=== PATIENT | male | born 1970 | race American Indian/Alaskan Native ===

== ENCOUNTER 2020-10-23 21:53 | Observation (INO) | payer MEDICAID, OTHER ==
[2020-10-23] MEDS ORDERED: ONDANSETRON 4 MG/2 ML INJ IV ONE (22:07)
--- NOTE | 2020-10-23 22:08 | Emergency Department Report ---
ED Shortness of Breath HPI - General Stated Complaint: RESPIRATORY DISTRESS Time Seen by Provider: 10/23/20 21:59 Source: patient, EMS Mode of arrival: Stretcher Limitations: No Limitations - History of Present Illness Initial Comments: Patient is a 50-year-old male who presents emergency room with complaints of difficulty breathing. Patient states his symptoms started 2 days ago. Patient dates symptoms are worsening. Patient states that he missed dialysis for the last 2 days because he is visiting here from [place]. Patient denies chest pain. Patient denies fever and chills. Patient states he has been wheezing. Patient has history of CHF, end-stage renal disease and hypertension and COPD. Patient states he recently had a vein graft to his left lower extremity. Patient complains of a dry cough. Patient brought in by medics. Report received from EMS. EMS states that the patient was wheezing and was tight in the lungs. Patient was given magnesium, Solu-Medrol and placed on oxygen. Patient was also given albuterol. Patient denies recent travel. Patient denies recent international travel. Patient denies exposure to the novel coronavirus. Patient denies sick contacts. Patient denies fever and chills. . Patient denies diarrhea. Patient denies coming in contact with anybody with symptoms of the novel coronavirus. MD Complaint: shortness of breath -: Sudden Severity: severe Consistency: constant Improves With: oxygen, rest, bronchodilators, upright position Worsens With: lying flat, exertion Known History Of: COPD, congestive heart failure Context: medication noncompliance Treatments Prior to Arrival: oxygen, bronchodilator, other (Solu-Medrol and magnesium) - Related Data Home Oxygen Therapy: Yes Home Oxygen Amount: 2 Liters Allergies Allergy/AdvReac Type Severity Reaction Status Date / Time vancomycin Allergy Rash Verified 10/23/20 22:21 ED Review of Systems ROS: Stated complaint: RESPIRATORY DISTRESS Other details as noted in HPI Constitutional: denies: chills, fever Eyes: denies: eye pain, eye discharge, vision change ENT: denies: ear pain, throat pain Respiratory: see HPI, cough, shortness of breath, SOB with exertion, SOB at rest, wheezing Cardiovascular: dyspnea on exertion. denies: chest pain, palpitations Endocrine: no symptoms reported Gastrointestinal: denies: abdominal pain, nausea, diarrhea Genitourinary: denies: urgency, dysuria Musculoskeletal: denies: back pain, joint swelling, arthralgia Skin: denies: rash, lesions Neurological: denies: headache, weakness, paresthesias Psychiatric: denies: anxiety, depression Hematological/Lymphatic: denies: easy bleeding, easy bruising ED Past Medical Hx - Past Medical History Previous Medical History?: Yes Hx Hypertension: Yes Hx Congestive Heart Failure: Yes Hx Renal Disease: Yes (esrd) Hx COPD: Yes - Surgical History Past Surgical History?: Yes Additional Surgical History: Vein graft - Family History Family history: no significant - Social History Smoking Status: Former Smoker Substance Use Type: None ED Physical Exam - General General appearance: alert, in distress - Head Head exam: Present: atraumatic, normocephalic - Eye Eye exam: Present: normal appearance - ENT ENT exam: Present: mucous membranes moist - Neck Neck exam: Present: normal inspection - Respiratory Respiratory exam: Present: respiratory distress, decreased breath sounds - Cardiovascular Cardiovascular Exam: Present: regular rate, normal rhythm. Absent: systolic murmur, diastolic murmur, rubs, gallop - GI/Abdominal GI/Abdominal exam: Present: soft, normal bowel sounds - Rectal Rectal exam: Present: deferred - Extremities Exam Extremities exam: Present: normal inspection - Back Exam Back exam: Present: normal inspection - Neurological Exam Neurological exam: Present: alert, oriented X3 - Psychiatric Psychiatric exam: Present: normal affect, normal mood - Skin Skin exam: Present: warm, dry, intact, normal color. Absent: rash ED Course Vital Signs 10/23/20 10/23/20 10/23/20 22:12 22:30 23:00 Temperature 98.7 F Pulse Rate 100 H 100 H 97 H Respiratory 12 11 L 12 Rate Blood Pressure 138/82 136/91 121/69 Blood Pressure 138/82 [Right] O2 Sat by Pulse 95 92 98 Oximetry 10/23/20 10/24/20 10/24/20 23:30 00:00 00:30 Temperature Pulse Rate 96 H 97 H 95 H Respiratory 11 L 15 11 L Rate Blood Pressure 130/72 125/72 138/74 Blood Pressure [Right] O2 Sat by Pulse 98 99 98 Oximetry 10/24/20 10/24/20 10/24/20 01:00 01:30 02:00 Temperature Pulse Rate 104 H 94 H 90 Respiratory 16 10 L 10 L Rate Blood Pressure 127/70 136/79 139/80 Blood Pressure [Right] O2 Sat by Pulse 91 98 97 Oximetry 10/24/20 10/24/20 10/24/20 02:30 03:00 03:30 Temperature Pulse Rate 86 88 86 Respiratory 10 L 11 L 8 L Rate Blood Pressure 126/87 137/97 132/78 Blood Pressure [Right] O2 Sat by Pulse 98 99 Oximetry - Reevaluation(s) Reevaluation #1: Patient refused BiPAP. Patient placed on 3 L of oxygen and the patient is work to breathe has improved. 10/23/20 22:06 Reevaluation #2: Patient is resting comfortably. 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 No change in lung sounds. 10/23/20 22:46 Reevaluation #3: Patient will receive a hyperkalemia protocol. I discussed all results with patient. I discussed plan of care with patient. Patient agrees with plan of care and admission. Patient to be admitted to the hospitalist service. 10/23/20 23:36 - Consultations Consultation #1: Hospitalist consulted for admission. Hospitalist to admit patient. 10/23/20 23:36 Consultation #2: I discussed the case with Dr. Hays, nephrology. Dr. Hays recommends admission and she will order dialysis for the morning. 10/23/20 23:56 ED Medical Decision Making - Lab Data Result diagrams: 10/23/20 22:35 10/24/20 01:11 - EKG Data -: EKG Interpreted by Me EKG shows normal: sinus rhythm, axis, intervals, QRS complexes, ST-T waves Rate: normal - Radiology Data Radiology results: report reviewed, image reviewed interpreted by me: Chest x-ray: No pneumonia, no pneumothorax, no foreign body, no osseous findings, cardiomegaly and pulmonary edema CHEST 1 VIEW 10/23/2020 9:27 PM INDICATION / CLINICAL INFORMATION: Dyspnea. COMPARISON: None available. FINDINGS: SUPPORT DEVICES: None. HEART / MEDIASTINUM: Enlarged cardiac silhouette. LUNGS / PLEURA: Mild central pulmonary vascular congestion. Mild bilateral interstitial edema. No confluent infiltrates. No pleural effusion. No pneumothorax. ADDITIONAL FINDINGS: No significant additional findings. IMPRESSION: 1. Congestive heart failure with mild interstitial edema. - Medical Decision Making Patient is a 50-year-old male who presents emergency room with complaints of shortness of breath. Patient also complains of missed dialysis. Patient is visiting from [place] and has had dialysis for 3 days. Patient brought in by EMS. EMS treated the patient for a COPD exacerbation as patient was wheezing. Patient's work to breathe improved. Patient placed on 3 L of oxygen. Patient had a chest x-ray cardiomegaly with pulmonary edema and CHF changes. Patient had labs done which showed showed end-stage renal disease with abnormal electrolytes and hyperkalemia. Patient had an EKG done which shows sinus rhythm. I personally reviewed the chest x-ray and EKG. I consulted nephrology. Nephrology recommendations were received. Patient admitted to the hospital service for further evaluation treatment. Critical care time documented due to the multiple reassessments, prolonged time at the bedside, interpretation of diagnostics and labs and discussion with consultants.. - Differential Diagnosis Volume overload, CHF exacerbation, missed dialysis, shortness of breath, Critical Care Time: Yes Critical care time in (mins) excluding proc time.: 35 Critical care attestation.: If time is entered above; I have spent that time in minutes in the direct care of this critically ill patient, excluding procedure time. Critical Care Time: 35 minutes ED Disposition Clinical Impression: SOB (shortness of breath), Pulmonary edema cardiac cause, Missed dialysis, Hyperkalemia, COPD exacerbation CHF exacerbation Qualifiers: Heart failure type: unspecified Qualified Code(s): I50.9 - Heart failure, unspecified Respiratory failure Qualifiers: Chronicity: acute Respiratory failure complication: hypoxia Qualified Code(s): J96.01 - Acute respiratory failure with hypoxia Volume overload Qualifiers: Hypervolemia type: unspecified Qualified Code(s): E87.70 - Fluid overload, unspecified Disposition: DC-09 OP ADMIT IP TO THIS HOSP Is pt being admited?: Yes Does the pt Need Aspirin: No Condition: Critical Time of Disposition: 23:59
[2020-10-23 23:02] LABS: Basophils % (Auto) 0.2 % (0.0-1.8); Eosinophils # (Auto) 0.1 K/mm3 (0.0-0.4); Eosinophils % (Auto) 0.9 % (0.0-4.3); Hematocrit 22.7 % (35.5-45.6); Hemoglobin 7.6 gm/dl (11.8-15.2); Lymphocytes # (Auto) 1.1 K/mm3 (1.2-5.4); Lymphocytes % (Auto) 9.5 % (13.4-35.0); Mean Corpuscular HGB Conc 33 % (32-34); Mean Corpuscular Volume 93 fl (84-94); Monocytes # (Auto) 0.8 K/mm3 (0.0-0.8); Monocytes % (Auto) 6.8 % (0.0-7.3); Platelet Count 213 K/mm3 (140-440); Red Blood Count 2.46 M/mm3 (3.65-5.03); Red Cell Distribution Width 15.7 % (13.2-15.2)
[2020-10-23 23:11] LABS: INR 1.22 (0.87-1.13)
[2020-10-23 23:12] LABS: Partial Thromboplastin Time 30.9 Sec. (24.2-36.6)
[2020-10-23 23:15] LABS: Albumin 3.3 g/dL (3.9-5)
--- NOTE | 2020-10-23 23:21 | XRay Report ---
CHEST 1 VIEW 10/23/2020 9:27 PM INDICATION / CLINICAL INFORMATION: Dyspnea. COMPARISON: None available. FINDINGS: SUPPORT DEVICES: None. HEART / MEDIASTINUM: Enlarged cardiac silhouette. LUNGS / PLEURA: Mild central pulmonary vascular congestion. Mild bilateral interstitial edema. No con fluent infiltrates. No pleural effusion. No pneumothorax. ADDITIONAL FINDINGS: No significant additional findings. IMPRESSION: 1. Congestive heart failure with mild interstitial edema. Signer Name: Marc Suarez MD Signed: 10/23/2020 11:17 PM Workstation Name: [id number]
[2020-10-23 23:28] LABS: Calcium 4.1 mg/dL (8.4-10.2)
[2020-10-23] MEDS ORDERED: SODIUM POLYSTYRENE 15 GM/60 ML ORAL LIQD PR ONE (23:28)
[2020-10-23] MEDS ORDERED: INSULIN REGULAR, HUMAN 100 UNITS/1 ML IV ONE (23:28)
[2020-10-23] MEDS ORDERED: DEXTROSE 50% IN WATER (25GM) 50 ML SYRINGE IV ONE (23:28)
[2020-10-24] MEDS ORDERED: NITROGLYCERIN 0.4 MG TAB SUBL SL PRN (00:19)
[2020-10-24] MEDS ORDERED: ALBUTEROL 2.5 MG/3 ML NEBU IH PRN (00:24)
[2020-10-24] MEDS ORDERED: ACETAMINOPHEN 325 MG TAB PO PRN (00:25)
[2020-10-24] MEDS ORDERED: METOCLOPRAMIDE 10 MG/2 ML INJ IV PRN (00:25)
[2020-10-24] MEDS ORDERED: CALCIUM CHLORIDE 1,000 MG in SODIUM CHLORIDE 0.9% 100 ML IV ONE (00:28)
[2020-10-24] MEDS ORDERED: DEXTROSE 50% IN WATER (25GM) 50 ML SYRINGE IV ONE ×3 (00:28→03:10)
[2020-10-24 00:54] LABS: Chol/HDL Ratio 3.85 %
--- NOTE | 2020-10-24 02:02 | History and Physical Report ---
History of Present Illness Date of examination: 10/23/20 Date of admission: 10/23/2020 Chief complaint: Difficulty in breathing, missed dialysis session History of present illness: 50-year-old -[place] male with history of COPD, CHF, ESRD on HD (M/W/F) who presents [facility] ED via EMS with complaints of difficulty in breathing. Patient states that he has missed dialysis a few due to traveling from [place] to [place] for his daughter's high school graduation. He was last dialyzed on 10/17/2020. He complains of worsening difficulty in breathing x2 days, which is worse with activity. Endorses wheezing, dry nonproductive cough, and left lower extremity edema. Reports recent vein graft to the left lower extremity. Denies nausea, vomiting, fever, chills, sputum production, headache, palpitation, abdominal pain, chest pain, or recent sick contacts. Past History Past Medical History: COPD, diabetes, ESRD (On HD M/W/F), heart failure, hypertension Past Surgical History: Other (USHA AV fistula, left foot amputation of 2-5 toes, vein graft to left lower extremity (recent)) Social history: lives with family, full code. denies: smoking, alcohol abuse, prescription drug abuse, IV drug use Family history: diabetes, hypertension Medications and Allergies Allergies Allergy/AdvReac Type Severity Reaction Status Date / Time vancomycin Allergy Rash Verified 10/23/20 22:21 Active Meds: Active Medications Acetaminophen (Acetaminophen 325 Mg Tab) 650 mg PO Q4H PRN PRN Reason: Pain MILD(1-3)/Fever >100.5/DOMINGUEZ Albuterol (Albuterol 2.5 Mg/3 Ml Nebu) 2.5 mg IH Q3HRT PRN PRN Reason: Shortness Of Breath Albuterol/Ipratropium (Ipratropium/Albuterol Sulfate 3 Ml Ampul.Neb) 1 ampul IH Q6HRT SHAY Aspirin (Aspirin 81 Mg Tab Chew) 81 mg PO QDAY SHAY Budesonide (Budesonide 0.5 Mg/2 Ml Nebu) 0.5 mg IH Q12HRT SHAY Carvedilol (Carvedilol 3.125 Mg Tab) 3.125 mg PO BID@0800,1700 SHAY Docusate Sodium (Docusate Sodium 100 Mg Cap) 100 mg PO BID SHAY Heparin Sodium (Porcine) (Heparin 5,000 Unit/1 Ml Vial) 5,000 unit SUB-Q Q12HR SHAY Insulin Human Lispro (Insulin Lispro 100 Unit/Ml) 0 unit SUB-Q ACHS SHAY; Protocol Lisinopril (Lisinopril 5 Mg Tab) 5 mg PO QDAY [facility] Methylprednisolone Sodium Succinate (Methylprednisolone Sod Succinate 40 Mg/1 Ml Inj) 60 mg IV Q8HR [facility] Metoclopramide HCl (Metoclopramide 10 Mg/2 Ml Inj) 5 mg IV Q6H PRN PRN Reason: Nausea And Vomiting Nitroglycerin (Nitroglycerin 0.4 Mg Tab Subl) 0.4 mg SL .Q5MIN PRN PRN Reason: Chest Pain Ondansetron HCl (Ondansetron 4 Mg/2 Ml Inj) 4 mg IV Q6H PRN PRN Reason: Nausea And Vomiting Review of Systems All systems: negative (As noted in HPI) Exam - Physical Exam Narrative exam: Physical exam General appearance: Present: No acute distress, sleeping, easily aroused, oriented x3, adult male - EENT Eyes: Present: PERRL, EOM intact ENT: hearing intact, missing teeth - Neck Neck: Present: supple, normal ROM - Respiratory Respiratory effort: Non-labored Respiratory: Scattered wheezing, diminished bases - Cardiovascular Heart rate: 96 (bpm) Rhythm: Sinus nonspecific T wave abnormalities Heart Sounds: Present: S1 & S2. Absent: rub, click - Extremities Extremities: no ischemia, pulses intact, left foot amputation of 2-5 toes, - Peripheral Assessment Peripheral Pulses: within normal limits - Abdominal General gastrointestinal: soft, non-tender, normal bowel sounds - Integumentary Integumentary: Present: warm, dry - Musculoskeletal Musculoskeletal: Able to move all extremities -Neurological Neurological: CN II-XII intact - Psychiatric Psychiatric: cooperative - Constitutional Vitals: Temp Pulse Resp BP Pulse Ox 98.7 F 95 H 11 L 138/74 98 10/23/20 22:12 10/24/20 00:30 10/24/20 00:30 10/24/20 00:30 10/24/20 00:30 HEART Score - HEART Score Troponin: Troponin T 0.248 ng/mL (0.00-0.029) H* 10/24/20 01:11 Results - Labs CBC & Chem 7: 10/23/20 22:35 10/24/20 01:11 Labs: Laboratory Last Values WBC 11.1 K/mm3 (4.5-11.0) H 10/23/20 22:35 RBC 2.46 M/mm3 (3.65-5.03) L 10/23/20 22:35 Hgb 7.6 gm/dl (11.8-15.2) L 10/23/20 22:35 Hct 22.7 % (35.5-45.6) L 10/23/20 22:35 MCV 93 fl (84-94) 10/23/20 22:35 MCH 31 pg (28-32) 10/23/20 22: MCHC 33 % (32-34) 10/23/20 22:35 RDW 15.7 % (13.2-15.2) H 10/23/20 22:35 Plt Count 213 K/mm3 (140-440) 10/23/20 22:35 Lymph % (Auto) 9.5 % (13.4-35.0) L 10/23/20 22:35 [place] % (Auto) 6.8 % (0.0-7.3) 10/23/20 22:35 Eos % (Auto) 0.9 % (0.0-4.3) 10/23/20 22:35 Baso % (Auto) 0.2 % (0.0-1.8) 10/23/20 22:35 Lymph # (Auto) 1.1 K/mm3 (1.2-5.4) L 10/23/20 22:35 [place] # (Auto) 0.8 K/mm3 (0.0-0.8) 10/23/20 22:35 Eos # (Auto) 0.1 K/mm3 (0.0-0.4) 10/23/20 22: Baso # (Auto) 0.0 K/mm3 (0.0-0.1) 10/23/20 22: Seg Neutrophils % 82.6 % (40.0-70.0) H 10/23/20 22:35 Seg Neutrophils # 9.2 K/mm3 (1.8-7.7) H 10/23/20 22:35 PT 15.4 Sec. (12.2-14.9) H 10/23/20 22:35 INR 1.22 (0.87-1.13) H 10/23/20 22:35 APTT 30.9 Sec. (24.2-36.6) 10/23/20 22:35 Sodium 132 mmol/L (137-145) L 10/23/20 22:35 Potassium 6.4 mmol/L (3.6-5.0) H* 10/24/20 01:11 Chloride 91.8 mmol/L (98-107) L 10/23/20 22:35 Carbon Dioxide 21 mmol/L (22-30) L 10/23/20 22:35 Anion Gap 25 mmol/L 10/23/20 22:35 BUN 92 mg/dL (9-20) H 10/23/20 22:35 Creatinine 15.9 mg/dL (0.8-1.3) H 10/23/20 22:35 Estimated GFR 3 ml/min 10/23/20 22:35 BUN/Creatinine Ratio 6 % 10/23/20 22:35 Glucose 119 mg/dL (75-100) H 10/23/20 22:35 POC Glucose 111 mg/dL (70-105) H 10/23/20 23:55 Hemoglobin A1c 6.2 % (4-6) H 10/24/20 01:11 Lactic Acid 0.60 mmol/L (0.7-2.0) L 10/23/20 22:35 Calcium 4.1 mg/dL (8.4-10.2) L* 10/23/20 22:35 Total Bilirubin 0.50 mg/dL (0.1-1.2) 10/23/20 22:35 AST 35 units/L (5-40) 10/23/20 22:35 ALT 22 units/L (7-56) 10/23/20 22:35 Alkaline Phosphatase 85 units/L (35-129) 10/23/20 22:35 Troponin T 0.248 ng/mL (0.00-0.029) H* 10/24/20 01:11 Total Protein 6.6 g/dL (6.3-8.2) 10/23/20 22:35 Albumin 3.3 g/dL (3.9-5) L 10/23/20 22:35 Albumin/Globulin Ratio 1.0 % 10/23/20 22:35 Triglycerides 195 mg/dL (2-149) H 10/23/20 22:35 Cholesterol 220 mg/dL (50-199) H 10/23/20 22:35 LDL Cholesterol Direct 131 mg/dL (50-130) H 10/23/20 22:35 HDL Cholesterol 57 mg/dL (40-59) 10/23/20 22:35 Cholesterol/HDL Ratio 3.85 % 10/23/20 22:35 - Diagnostic Impressions Diagnostic Impressions: CXR: FINDINGS: SUPPORT DEVICES: None. HEART / MEDIASTINUM: Enlarged cardiac silhouette. LUNGS / PLEURA: Mild central pulmonary vascular congestion. Mild bilateral interstitial edema. No confluent infiltrates. No pleural effusion. No pneumothorax. ADDITIONAL FINDINGS: No significant additional findings. IMPRESSION: 1. Congestive heart failure with mild interstitial edema. Assessment and Plan Assessment and plan: Volume overload -Due to missed dialysis sessions from 1 week -HD pending in a.m. -Nephrology consulted Pseudo-hyponatremia -Due to volume overload -Sodium at 132 on admission -Monitor ESRD on HD -M// -Last dialyzed on 10/17 -Resides in [place], but came to [place] for daughter's graduation and did not set up HD session with local dialysis clinic -Avoid nephrotoxin agents -Still makes some urine -Monitor output -Fluid restriction 1.5 L daily -Nephrology consulted for HD management Hyperkalemia -Potassium 6.0 on admission -Received hyperkalemic cocktail, and Kayexalate in ED -Monitor potassium -May need additional Kayexalate -Pending HD in a.m. Acute exacerbation COPD -Increased shortness of breath -Scheduled to DuoNebs and Pulmicort, albuterol when necessary -IV systemic steroids -Mild leukocytosis will start on IV Levaquin Recent amputation left toe -Amputation of 2-5 toes on left feet (10/12/2020) -Wrapped in Bora bandage -Wound care consult pending Chronic anemia -Due to chronic renal failure -Hgb 7.6 on admission -No S/S of active bleeding -Monitor -Transfuse as needed for Hgb <7 Elevated troponin -@ 0.241 -Likely troponin leak due to renal failure -Continue to trend -On continuous telemetry monitoring -EKG negative for acute ischemic abnormalities, however shows nonspecific T wave abnormalities -Echo pending -Cardiology consulted History of CHF -EF unknown -Start low-dose aspirin, BB, BORA -Monitor -Strict I's and O's -Fluid restriction 1.5 L daily -Cardiology consulted Malnutrition -Albumin 3.3 -Dietitian consult please DVT PPI -on Heparin Advance Directives: No VTE prophylaxis?: Chemical, Mechanical Plan of care discussed with patient/family: Yes
[2020-10-24] MEDS ORDERED: CALCIUM GLUCONATE 1,000 MG in SODIUM CHLORIDE 0.9% 100 ML IV ONE ×2 (02:45→11:00)
[2020-10-24] MEDS ORDERED: INSULIN REGULAR, HUMAN 100 UNITS/1 ML SUB-Q ONE (03:11)
[2020-10-24] MEDS: ONDANSETRON 4 MG/2 ML INJ IV PRN ×2 (04:16→12:49)
[2020-10-24] MEDS: oxyCODONE /ACETAMINOPHEN 5-325MG TAB PO PRN ×2 (04:30→16:20)
[2020-10-24] MEDS ORDERED: SODIUM CHLORIDE 0.9% 100 ML IV PRN (05:10)
[2020-10-24] MEDS ORDERED: EPOETIN ALFA-EPBX 10,000 UNIT/1 ML VIAL IV PRN (05:10)
[2020-10-24] MEDS: methylPREDNISolone Sod Succinate 40 MG/1 ML INJ IV SCH ×2 (06:21→16:12)
--- NOTE | 2020-10-24 06:39 | Consultation ---
History of Present Illness - Reason for Consult Consult date: 10/24/20 end stage renal disease, hyperkalemia, accelerated hypertension Requesting physician: ADAL COTO - History of Present Illness Patient is a 50-year-old male who presents emergency room with complaints of difficulty breathing. Patient states his symptoms started 2 days ago. Patient dates symptoms are worsening. Patient states that he missed dialysis for the last 2 days because he is visiting here from [place]. Patient denies chest pain. Patient denies fever and chills. Patient states he has been wheezing. Patient has history of CHF, end-stage renal disease and hypertension and COPD. Patient states he recently had a vein graft to his left lower extremity. Patient complains of a dry cough. Patient brought in by medics. Report received from EMS. EMS states that the patient was wheezing and was tight in the lungs. Patient was given magnesium, Solu-Medrol and placed on oxygen. Patient was also given albuterol. Patient denies recent travel. Patient denies recent international travel. Patient denies exposure to the novel coronavirus. Patient denies sick contacts. Patient denies fever and chills. . Patient denies diarrhea. Patient denies coming in contact with anybody with symptoms of the novel coronavirus. MD Complaint: shortness of breath -: Sudden Severity: severe Consistency: constant Improves With: oxygen, rest, bronchodilators, upright position Worsens With: lying flat, exertion Known History Of: COPD, congestive heart failure Context: medication noncompliance Treatments Prior to Arrival: oxygen, bronchodilator, other (Solu-Medrol and magnesium) - Related Data Home Oxygen Therapy: Yes Home Oxygen Amount: 2 Liters ROS: Stated complaint: RESPIRATORY DISTRESS Other details as noted in HPI Constitutional: denies: chills, fever Eyes: denies: eye pain, eye discharge, vision change ENT: denies: ear pain, throat pain Respiratory: see HPI, cough, shortness of breath, SOB with exertion, SOB at rest, wheezing Cardiovascular: dyspnea on exertion. denies: chest pain, palpitations Endocrine: no symptoms reported Gastrointestinal: denies: abdominal pain, nausea, diarrhea Genitourinary: denies: urgency, dysuria Musculoskeletal: denies: back pain, joint swelling, arthralgia Skin: denies: rash, lesions Neurological: denies: headache, weakness, paresthesias Psychiatric: denies: anxiety, depression Hematological/Lymphatic: denies: easy bleeding, easy bruising - Past Medical History Previous Medical History?: Yes Hx Hypertension: Yes Hx Congestive Heart Failure: Yes Hx Renal Disease: Yes (esrd) Hx COPD: Yes - Surgical History Past Surgical History?: Yes Additional Surgical History: Vein graft - Family History Family history: no significant - Social History Smoking Status: Former Smoker Substance Use Type: None Past History Past Medical History: COPD, diabetes, ESRD (On HD M/W/F), heart failure, hypertension Past Surgical History: Other (USHA AV fistula, left foot amputation of 2-5 toes, vein graft to left lower extremity (recent)) Social history: lives with family, full code. denies: smoking, alcohol abuse, prescription drug abuse, IV drug use Family history: diabetes, hypertension Medications and Allergies Allergies Allergy/AdvReac Type Severity Reaction Status Date / Time vancomycin Allergy Rash Verified 10/23/20 22:21 Active Meds: Active Medications Acetaminophen (Acetaminophen 325 Mg Tab) 650 mg PO Q4H PRN PRN Reason: Pain MILD(1-3)/Fever >100.5/DOMINGUEZ Albuterol (Albuterol 2.5 Mg/3 Ml Nebu) 2.5 mg IH Q3HRT PRN PRN Reason: Shortness Of Breath Albuterol/Ipratropium (Ipratropium/Albuterol Sulfate 3 Ml Ampul.Neb) 1 ampul IH Q6HRT [facility] Aspirin (Aspirin 81 Mg Tab Chew) 81 mg PO QDAY [facility] Budesonide (Budesonide 0.5 Mg/2 Ml Nebu) 0.5 mg IH Q12HRT [facility] Carvedilol (Carvedilol 3.125 Mg Tab) 3.125 mg PO BID@0800,1700 [facility] Docusate Sodium (Docusate Sodium 100 Mg Cap) 100 mg PO BID [facility] Heparin Sodium (Porcine) (Heparin 5,000 Unit/1 Ml Vial) 5,000 unit SUB-Q Q12HR [facility] Levofloxacin/Dextrose (Levaquin 500mg/100ml) 500 mg in 100 mls @ 100 mls/hr IV Q24H [facility]; Protocol Stop: 10/24/20 06:59 Last Admin: 10/24/20 06:21 Dose: 100 mls/hr Documented by: Levofloxacin/Dextrose (Levaquin 250mg/50ml) 250 mg in 50 mls @ 100 mls/hr IV Q48HR [facility] Sodium Chloride (Nacl 0.9%) 100 mls @ 999 mls/hr IV VISH PRN PRN Reason: Hypotension Insulin Human Lispro (Insulin Lispro 100 Unit/Ml) 0 unit SUB-Q ACHS [facility]; Protocol Lisinopril (Lisinopril 5 Mg Tab) 5 mg PO QDAY [facility] Methylprednisolone Sodium Succinate (Methylprednisolone Sod Succinate 40 Mg/1 Ml Inj) 60 mg IV Q8HR [facility] Last Admin: 10/24/20 06:21 Dose: 60 mg Documented by: Metoclopramide HCl (Metoclopramide 10 Mg/2 Ml Inj) 5 mg IV Q6H PRN PRN Reason: Nausea And Vomiting Nitroglycerin (Nitroglycerin 0.4 Mg Tab Subl) 0.4 mg SL .Q5MIN PRN PRN Reason: Chest Pain Ondansetron HCl (Ondansetron 4 Mg/2 Ml Inj) 4 mg IV Q6H PRN PRN Reason: Nausea And Vomiting Last Admin: 10/24/20 04:16 Dose: 4 mg Documented by: Oxycodone/Acetaminophen (Oxycodone /Acetaminophen 5-325mg Tab) 1 tab PO Q6H PRN PRN Reason: Pain, Moderate (4-6) Last Admin: 10/24/20 04:30 Dose: 1 tab Documented by: Exam - Vital Signs Vital signs: Vital Signs Temp Pulse Resp BP Pulse Ox 98.7 F 100 H 12 138/82 95 10/23/20 22:12 10/23/20 22:12 10/23/20 22:12 10/23/20 22:12 10/23/20 22:12 - Physical Exam Narrative exam: - General General appearance: alert, in distress - Head Head exam: Present: atraumatic, normocephalic - Eye Eye exam: Present: normal appearance - ENT ENT exam: Present: mucous membranes moist - Neck Neck exam: Present: normal inspection - Respiratory Respiratory exam: Present: respiratory distress, decreased breath sounds - Cardiovascular Cardiovascular Exam: Present: regular rate, normal rhythm. Absent: systolic murmur, diastolic murmur, rubs, gallop - GI/Abdominal GI/Abdominal exam: Present: soft, normal bowel sounds - Rectal Rectal exam: Present: deferred - Extremities Exam Extremities exam: Present: normal inspection - Back Exam Back exam: Present: normal inspection - Neurological Exam Neurological exam: Present: alert, oriented X3 - Psychiatric Psychiatric exam: Present: normal affect, normal mood - Skin Skin exam: Present: warm, dry, intact, normal color. Absent: rash Results - Lab Results 10/23/20 22:35 10/24/20 01:11 Most recent lab results Calcium 4.1 mg/dL (8.4-10.2) L* 10/23/20 22:35 Assessment and Plan Impression: * ESRD * Hyperkalemia * HTN * COPD * Anemia in esrd * Volume overload Plan: * hd today and in AM * follow up daily lytes and strict i/os * uf as tolerated with HD * stress compliance with HD * ok to dc after hd from renal standpoint
[2020-10-24] MEDS ORDERED: MORPHINE 2 MG/1 ML INJ IV ONE ×2 (06:41→15:30)
[2020-10-24] MEDS ORDERED: INSULIN LISPRO 100 UNIT/ML SUB-Q SCH (07:30)
[2020-10-24] MEDS ORDERED: carvediloL 3.125 MG TAB PO SCH (08:00)
[2020-10-24] MEDS ORDERED: BUDESONIDE 0.5 MG/2 ML NEBU IH SCH (08:00)
[2020-10-24] MEDS: IPRATROPIUM/ALBUTEROL SULFATE 3 ML AMPUL.NEB IH SCH ×3 (08:47→15:17)
--- NOTE | 2020-10-24 09:24 | Consultation ---
History of Present Illness Consult date: 10/24/20 Requesting physician: NOEL MELENDEZ Consult reason: congestive heart failure History of present illness: Pt is a 50-year-old AA male with a hx of ESRD on HD (MWF) who presented with complaints of SOB and dry cough over the past few days. No recent fever/chills. Pt resides in [place] and is vising [place] to attend a family member's graduation. As such, he missed dialysis x 2 sessions prior to arrival. Pt denies any additional complaints. CXR at admission revealed interstitial edema. No previous cardiac workup available for review. Past History Past Medical History: anemia, COPD, diabetes, dialysis, heart failure, hypertension Past Surgical History: denies: CABG, PTCA Social history: lives with family. denies: smoking, alcohol abuse Family history: diabetes, hypertension Medications and Allergies Allergies Allergy/AdvReac Type Severity Reaction Status Date / Time vancomycin Allergy Rash Verified 10/23/20 22:21 Home Medications Medication Instructions Recorded Confirmed Last Taken Type Albuterol Mdi (or & Nicu Only) 2 puff IH QID PRN #8.5 gram 10/24/20 Unknown Rx [ProAir HFA Inhaler] Amlodipine Besylate [Norvasc] 10 mg PO DAILY #30 tablet 10/24/20 Unknown Rx Aspirin [Aspirin BABY CHEW TAB] 81 mg PO QDAY #30 tab.chew 10/24/20 Unknown Rx carvediloL [Coreg] 3.125 mg PO BID@0800,1700 #60 10/24/20 Unknown Rx tablet oxyCODONE /ACETAMINOPHEN [Percocet 1 tab PO Q6H PRN #14 tablet 10/24/20 Unknown Rx 5/325 mg] Active Meds: Active Medications Acetaminophen (Acetaminophen 325 Mg Tab) 650 mg PO Q4H PRN PRN Reason: Pain MILD(1-3)/Fever >100.5/DOMINGUEZ Albuterol (Albuterol 2.5 Mg/3 Ml Nebu) 2.5 mg IH Q3HRT PRN PRN Reason: Shortness Of Breath Albuterol/Ipratropium (Ipratropium/Albuterol Sulfate 3 Ml Ampul.Neb) 1 ampul IH Q6HRT [facility] Last Admin: 10/24/20 08:51 Dose: Not Given Documented by: Aspirin (Aspirin 81 Mg Tab Chew) 81 mg PO QDAY [facility] Budesonide (Budesonide 0.5 Mg/2 Ml Nebu) 0.5 mg IH Q12HRT [facility] Last Admin: 10/24/20 08:51 Dose: Not Given Documented by: Carvedilol (Carvedilol 3.125 Mg Tab) 3.125 mg PO BID@0800,1700 [facility] Docusate Sodium (Docusate Sodium 100 Mg Cap) 100 mg PO BID [facility] Heparin Sodium (Porcine) (Heparin 5,000 Unit/1 Ml Vial) 5,000 unit SUB-Q Q12HR [facility] Levofloxacin/Dextrose (Levaquin 250mg/50ml) 250 mg in 50 mls @ 100 mls/hr IV Q48HR [facility] Sodium Chloride (Nacl 0.9%) 100 mls @ 999 mls/hr IV VISH PRN PRN Reason: Hypotension Insulin Human Lispro (Insulin Lispro 100 Unit/Ml) 0 unit SUB-Q ACHS [facility]; Protocol Last Admin: 10/24/20 08:40 Dose: Not Given Documented by: Lisinopril (Lisinopril 5 Mg Tab) 5 mg PO QDAY [facility] Methylprednisolone Sodium Succinate (Methylprednisolone Sod Succinate 40 Mg/1 Ml Inj) 60 mg IV Q8HR [facility] Last Admin: 10/24/20 06:21 Dose: 60 mg Documented by: Metoclopramide HCl (Metoclopramide 10 Mg/2 Ml Inj) 5 mg IV Q6H PRN PRN Reason: Nausea And Vomiting Nitroglycerin (Nitroglycerin 0.4 Mg Tab Subl) 0.4 mg SL .Q5MIN PRN PRN Reason: Chest Pain Ondansetron HCl (Ondansetron 4 Mg/2 Ml Inj) 4 mg IV Q6H PRN PRN Reason: Nausea And Vomiting Last Admin: 10/24/20 04:16 Dose: 4 mg Documented by: Oxycodone/Acetaminophen (Oxycodone /Acetaminophen 5-325mg Tab) 1 tab PO Q6H PRN PRN Reason: Pain, Moderate (4-6) Last Admin: 10/24/20 04:30 Dose: 1 tab Documented by: Review of Systems Constitutional: no fever, no chills, no sweats Ears, nose, mouth and throat: no nasal congestion, no sore throat Cardiovascular: shortness of breath, dyspnea on exertion, no chest pain, no orthopnea, no palpitations, no edema, no syncope, no lightheadedness, no paroxysmal nocturnal dyspnea Respiratory: cough, shortness of breath, dyspnea on exertion, no cough with sputum Gastrointestinal: no abdominal pain, no nausea, no vomiting, no diarrhea, no c onstipation Genitourinary Male: no dysuria, no flank pain Musculoskeletal: no neck stiffness, no neck pain, no myalgias Integumentary: no rash, no wounds Neurological: no head injury, no paralysis, no weakness, no parathesias, no numbness, no tingling, no seizures, no syncope, no vertigo, no headaches Endocrine: no cold intolerance, no heat intolerance Hematologic/Lymphatic: no easy bruising, no easy bleeding Allergic/Immunologic: no anaphylaxis Physical Examination Last Vital Signs Temp 98.0 F 10/24/20 13:30 Pulse 108 H 10/24/20 15:17 Resp 20 10/24/20 15:17 BP 177/104 10/24/20 13:30 Pulse Ox 97 10/24/20 09:26 General appearance: no acute distress HEENT: Positive: EOMI, Normocephaly, Mucus Membranes Moist Neck: Positive: neck supple, trachea midline Cardiac: Positive: Reg Rate and Rhythm, S1/S2 Lungs: Positive: Decreased Breath Sounds (bilaterally) Neuro: Positive: Grossly Intact Abdomen: Positive: Soft. Negative: Tender Skin: Negative: Rash Musculoskeletal: No Pain Extremities: Present: lower extr. pulses. Absent: edema Results 10/23/20 22:35 10/24/20 14:58 Cardiac Enzymes 10/23/20 Range/Units 22:35 AST 35 (5-40) units/L Coagulation 10/23/20 Range/Units 22:35 PT 15.4 H (12.2-14.9) Sec. INR 1.22 H (0.87-1.13) APTT 30.9 (24.2-36.6) Sec. Lipids 10/23/20 Range/Units 22:35 Triglycerides 195 H (2-149) mg/dL Cholesterol 220 H (50-199) mg/dL HDL Cholesterol 57 (40-59) mg/dL Cholesterol/HDL Ratio 3.85 % CBC 10/23/20 Range/Units 22:35 WBC 11.1 H (4.5-11.0) K/mm3 RBC 2.46 L (3.65-5.03) M/mm3 Hgb 7.6 L (11.8-15.2) gm/dl Hct 22.7 L (35.5-45.6) % Plt Count 213 (140-440) K/mm3 Lymph # (Auto) 1.1 L (1.2-5.4) K/mm3 Banks # (Auto) 0.8 (0.0-0.8) K/mm3 Eos # (Auto) 0.1 (0.0-0.4) K/mm3 Baso # (Auto) 0.0 (0.0-0.1) K/mm3 Comprehensive Metabolic Panel 10/23/20 10/24/20 10/24/20 Range/Units 22:35 01:11 04:43 Sodium 132 L (137-145) mmol/L Potassium 6.0 H 6.4 H* 7.0 H* (3.6-5.0) mmol/L Chloride 91.8 L (98-107) mmol/L Carbon Dioxide 21 L (22-30) mmol/L BUN 92 H (9-20) mg/dL Creatinine 15.9 H (0.8-1.3) mg/dL Glucose 119 H (75-100) mg/dL Calcium 4.1 L* (8.4-10.2) mg/dL AST 35 (5-40) units/L ALT 22 (7-56) units/L Alkaline Phosphatase 85 (35-129) units/L Total Protein 6.6 (6.3-8.2) g/dL Albumin 3.3 L (3.9-5) g/dL - Imaging and Cardiology Echo: report reviewed EKG: report reviewed, image reviewed - EKG Interpretation EKG: no acute changes EKG interpretations - Telemetry EKG Rhythm: Sinus Rhythm - EKG Sinus rhythms and dysrhythmias: sinus rhythm Repolarization changes or abnormalities: nonspecific abnormality, ST segment, and/or T wave, Q-T interval prolongation Assessment and Plan Echo reviewed - EF 50-55%, RV mildly dilated, normal RV systolic fxn, mild pulm HTN w/RVSP 40 mmHg. Volume optimization via HD. CE elevation is consistent with NSTEMI Type 2 in the setting of ESRD/volume overload. Plan for ischemic eval as an outpatient. Recommend initiation of statin. Otherwise continue home cardiac regimen. Will defer to PCP/Primary Boarding House Manager regarding use of Coreg vs cardioselective BB given underlying COPD, as well as use of ACEI/ARB given h/o DM. Otherwise stable cardiac status. No objections to discharge from a Cardiology standpoint. Pt advised to follow-up with a Boarding House Manager near his home ([place]) within 1-2 weeks of discharge. He verbalized understanding. Pt seen in conjunction with Dr. Leon, who agrees with the assessment and plan of care. - Patient Problems (1) ESRD needing dialysis Current Visit: Yes Status: Acute (2) Anemia Current Visit: Yes Status: Chronic (3) NSTEMI (non-ST elevated myocardial infarction) Current Visit: Yes Status: Acute Plan to address problem: Type 2 (4) Chronic heart failure with preserved ejection fraction (HFpEF) Current Visit: Yes Status: Chronic (5) COPD (chronic obstructive pulmonary disease) Current Visit: Yes Status: Chronic (6) HTN (hypertension) Current Visit: Yes Status: Chronic Qualifiers: Hypertension type: essential hypertension Qualified Code(s): I10 - Essential (primary) hypertension (7) HLD (hyperlipidemia) Current Visit: Yes Status: Chronic Qualifiers: Hyperlipidemia type: mixed hyperlipidemia Qualified Code(s): E78.2 - Mixed hyperlipidemia (8) DM2 (diabetes mellitus, type 2) Current Visit: Yes Status: Chronic
[2020-10-24] MEDS ORDERED: HEPARIN 5,000 UNIT/1 ML VIAL SUB-Q SCH (10:00)
[2020-10-24] MEDS ORDERED: DOCUSATE SODIUM 100 MG CAP PO SCH (10:00)
[2020-10-24] MEDS ORDERED: ASPIRIN 81 MG TAB CHEW PO SCH (10:00)
[2020-10-24] MEDS ORDERED: LISINOPRIL 5 MG TAB PO SCH (10:00)
[2020-10-24] MEDS ORDERED: SODIUM POLYSTYRENE 15 GM/60 ML ORAL LIQD PO ONE (11:00)
[2020-10-24] MEDS ORDERED: SODIUM BICARB 8.4% 50 MEQ/50 ML SYRINGE IV ONE (11:00)
[2020-10-24 12:00] LABS: Hepatitis B Surface Antigen Non-Reactive (Negative); Hepatitis C Virus Antibody Non-Reactive (NonReactive)
[2020-10-24 13:35] VITALS: BP 177/104
--- NOTE | 2020-10-24 13:38 | Electrocardiograph Report ---
[facility] Test Date: 2020-10-23 Test Time: 22:32:54 Pat Name: ANAND OCHOA Department: Room: A469 Gender: M [employer] [place]: JOSSELIN : 1970 Requested By: MIGUEL PARRA III Order Number: [id number] Reading MD: Alexandr Brasher Measurements Intervals [place] Rate: 96 P: 57 [place]: 149 QRS: 42 QRSD: 88 T: 144 QT: 431 QTc: 546 Interpretive Statements Sinus rhythm Nonspecific ST abnormality Prolonged QT interval No previous ECG available for comparison Electronically Signed On 10-24-2020 13:37:58 EDT by Alexandr Brasher
--- NOTE | 2020-10-24 15:18 | Discharge Summary ---
Providers - Providers Date of Admission: 10/23/20 23:55 Date of discharge: 10/24/20 Attending physician: PEREZ VERDUZCO 10/23/20 23:58 Consult to Physician [CONS] Routine Comment: Consulting Provider: CARLOS ZHANG Physician Instructions: Reason For Exam: esrd. hyperkalemia 10/24/20 00:19 Consult to Physician [CONS] Routine Comment: Consulting Provider: CLAIRE MOORE Physician Instructions: Reason For Exam: CHF-AE, EF unkown 10/24/20 00:25 Consult to Dietitian/Nutrition [CONS] Routine Physician Instructions: Reason For Exam: Reason for Consult: Malnutrition 10/24/20 01:59 Consult to Wound/ET Nurse [CONS] Routine Reason For Exam: wound eval, left foot, amputation of 2-5 toes Primary care physician: FORGING DIES FINAL FINISHER Hospitalization Condition: Critical Hospital course: 50-year-old -[place] male with history of COPD, ESRD on HD (M/W/F), recent left foot TMA, who presents [facility] ED via EMS with complaints of difficulty in breathing. Patient states that he has missed dialysis a few due to traveling from [place] to [place] for his daughter's high school graduation. He was last dialyzed on 10/17/2020. He complains of worsening difficulty in breathing x2 days, which is worse with activity. Endorses wheezing, dry nonproductive cough, and left lower extremity edema. Patient was admitted to the hospital, nephrology was consulted and had emergent hemodialysis. 2D echo was obtained which showed preserved EF. Patient symptom improved following dialysis, blood pressure was monitored. Patient was then discharged home with outpatient follow-up in stable condition. Patient will go back to [place] to resume his regular outpatient scheduled dialysis. Disposition: DC- TO HOME OR SELFCARE Final Discharge Diagnosis (Prints w/discharge instructions): ESRD. Hyperkalemia. HTN -uncontrolled. COPD. Anemia in esrd. Volume overload. s/p left TMA Time spent for discharge: 35 minutes Core Measure Documentation - Palliative Care Palliative Care/ Comfort Measures: Not Applicable - Core Measures Any of the following diagnoses?: none Exam - Physical Exam Narrative exam: GENERAL: well-developed and well-nourished male lying on bed appeared to be in no discomfort. HEENT: Normocephalic. Atraumatic. No conjunctival congestion or icterus. Patient has moist mucous membranes. NECK: Supple. Trachea midline. CHEST/LUNGS: Clear to auscultated bilaterally, breathing nonlabored. No wheezes crackles or rhonchi. HEART/CARDIOVASCULAR: Regular in rate and rhythm. S1 and S2 positive. ABDOMEN: Abdomen is soft, nontender. Patient has normal bowel sounds. SKIN: There is no rash. Warm and dry. NEURO: No focal motor deficit. Follows command. MUSCULOSKELETAL: No joint effusion or tenderness. EXTRIMITY: No edema, no cyanosis or clubbing. Left foot wound dressing. PSYCH: Cooperative. - Constitutional Vitals: Temp Pulse Resp BP Pulse Ox 98.0 F 99 H 18 177/104 97 10/24/20 13:30 10/24/20 13:30 10/24/20 13:30 10/24/20 13:30 10/24/20 09:26 Plan Activity: advance as tolerated Weight Bearing Status: Weight Bear as Tolerated Diet: renal Wound: per your surgeon's advice Additional Instructions: f/u with your PCP and surgeon in one week. Repeat BMP by Tuesday Follow up with: PRIMARY CARE, [Primary Care Provider] - 7 Days Prescriptions: Aspirin [Aspirin BABY CHEW TAB] 81 mg PO QDAY #30 tab.chew carvediloL [Coreg] 3.125 mg PO BID@0800,1700 #60 tablet Amlodipine Besylate [Norvasc] 10 mg PO DAILY #30 tablet oxyCODONE /ACETAMINOPHEN [Percocet 5/325 mg] 1 tab PO Q6H PRN #14 tablet PRN Reason: Pain, Moderate (4-6) Albuterol Mdi (or & Nicu Only) [ProAir HFA Inhaler] 2 puff IH QID PRN #8.5 gram PRN Reason: Shortness Of Breath
== END 2020-10-24 17:09 | disposition home or self-care (01) ==
LOC: ED 21:53 → 4A 23:55
PROVIDERS: ADMIT Hospitalist; ATTEND Internal Medicine
DX: J96.01 Acute respiratory failure with hypoxia (principal); J44.1 Chronic obstructive pulmonary disease with (acute) exacerbation; I11.0 Hypertensive heart disease with heart failure; I50.9 Heart failure, unspecified; N18.6 End stage renal disease; E11.22 Type 2 diabetes mellitus with diabetic chronic kidney disease; D63.1 Anemia in chronic kidney disease; I21.4 Non-ST elevation (NSTEMI) myocardial infarction; E87.5 Hyperkalemia; E87.70 Fluid overload, unspecified; E87.1 Hypo-osmolality and hyponatremia; E46 Unspecified protein-calorie malnutrition; R77.8 Other specified abnormalities of plasma proteins; Z99.2 Dependence on renal dialysis; Z68.27 Body mass index [BMI] 27.0-27.9, adult; Z79.899 Other long term (current) drug therapy; Z98.890 Other specified postprocedural states; Z79.4 Long term (current) use of insulin; Z79.82 Long term (current) use of aspirin; Z87.891 Personal history of nicotine dependence
CPT/HCPCS: 36415; 71045; 80053; 80061; 80074; 82140; 82962; 83036; 84132; 84484; 85025; 85610; 85730; 87040; 93005; 93306; 94640; 96365; 96375; 96376; 99291; G0378; J0885; J1956; J2270; J2405; J2765; J2920; J1815